=== PATIENT | female | born 1990 | race Hispanic/Latino ===

== ENCOUNTER 2017-03-02 12:38 | Emergency (ER) | payer BC, MEDICAID ==
[2017-03-02 13:02] VITALS: RESP 17; TEMP 98.2; O2SAT 100
[2017-03-02] MEDS ORDERED: Morphine 4 mg/ml ISec IM STA (13:12)
[2017-03-02] MEDS ORDERED: Lidocaine 5% Patch TD STA (13:12)
--- NOTE | 2017-03-02 13:16 | ED PDOC ---
Arrival/HPI - General Chief Complaint: Back Pain Time Seen by Provider: 03/02/17 13:07 Historian: Patient - History of Present Illness Narrative History of Present Illness (Text): 03/02/17 13:13 27 year old female, no pmh, allergic to nsaids, complaining of rt. lower back pain started today after squatting at the gym last night. Pt. woke up this morning with aching pain, spasm sensation, no urinary symptoms, limited relief with the tylenol plus allergic to the nsaid, aggravated by walking and movement , no numbness or tingling, no palpitation, no night sweat, no dizziness, no other medical or psychological complaints. Past Medical History - Provider Review Nursing Documentation Reviewed: Yes - Psychiatric Hx Psychophysiologic Disorder: No Hx Substance Use: No - Surgical History Hx Orthopedic Surgery: Yes Family/Social History - Physician Review Nursing Documentation Reviewed: Yes Family/Social History: Unknown Family HX Smoking Status: Never Smoked Hx Alcohol Use: Yes Frequency of alcohol use: Socially Hx Substance Use: No Allergies/Home Meds Allergies/Adverse Reactions: Allergies NSAIDS (Non-Steroidal Anti-Inflamma Allergy (Verified 03/02/17 12:58) ANAPHYLAXIS Home Medications: Home Meds Medication Instructions Recorded Confirmed Norethindrone-E.estradiol-Iron 1 tab PO DAILY 03/02/17 03/02/17 [Blisovi 24 Fe Tablet] Review of Systems - Review of Systems Constitutional: absent: Fatigue, Fevers Eyes: absent: Vision Changes ENT: absent: Hearing Changes Respiratory: absent: Cough, Sputum Cardiovascular: absent: Chest Pain Gastrointestinal: absent: Abdominal Pain, Nausea, Vomiting Musculoskeletal: Back Pain, Myalgias. absent: Arthralgias, Neck Pain, Joint Swelling Skin: absent: Rash, Pruritis, Skin Lesions Physical Exam Vital Signs Reviewed: Yes Vital Signs Temp Pulse Resp BP Pulse Ox 03/02/17 12:59 98.2 F 73 17 125/81 100 Temperature: Afebrile Blood Pressure: Normal Pulse: Regular Respiratory Rate: Normal Appearance: Positive for: Well-Appearing, Non-Toxic, Uncomfortable Pain Distress: Severe Mental Status: Positive for: Alert and Oriented X 3 - Systems Exam Head: Present: Atraumatic, Normocephalic Pupils: Present: PERRL Extroacular Muscles: Present: EOMI Conjunctiva: Present: Normal Mouth: Present: Moist Mucous Membranes Neck: Present: Normal Range of Motion Respiratory/Chest: Present: Clear to Auscultation, Good Air Exchange. No: Respiratory Distress, Accessory Muscle Use Cardiovascular: Present: Regular Rate and Rhythm, Normal S1, S2. No: Murmurs Abdomen: Present: Normal Bowel Sounds. No: Tenderness, Distention, Peritoneal Signs Back: Present: Normal Inspection, Other (LS spine: +ttp on the rt. paraspinal region with mild spasm, no cva tenderness, no rash, FROM without limitation but with pain upon lateral movement, sensation intact, motor 5/5, no saddling gait. ). No: CVA Tenderness, Midline Tenderness, Pain with Leg Raise, Decubitus Ulcer Upper Extremity: Present: Normal Inspection. No: Cyanosis, Edema Lower Extremity: Present: Normal Inspection. No: Edema Neurological: Present: GCS=15, CN II-XII Intact, Speech Normal Skin: Present: Warm, Dry, Normal Color. No: Rashes Psychiatric: Present: Alert, Oriented x 3, Normal Insight, Normal Concentration Medical Decision Making ED Course and Treatment: 03/02/17 13:17 -There is no emergent indication of the xray but the patient will need MRI of the lumbar spine if the pain persist over 7 days. -morphine/zofran/lidoderm/valium ordered. 03/02/17 13:44 -Pt. wants to go home and rest, has friend to drive her home. -Discharge home with lidoderm patch, flexeril, cane, heat compression, follow up with your own pmd within 2 days for MRI/CT of the lower back if the pain persist over 7 days, return to the ER for any new or worsening signs or symptoms. - Medication Orders Current Medication Orders: Discontinued Medications Diazepam (Valium) 5 mg PO ONCE ONE PRN Reason: Protocol Stop: 03/02/17 13:15 Lidocaine (Lidoderm) 1 ea TD STAT STA Stop: 03/02/17 13:13 Morphine Sulfate (Morphine) 4 mg IM STAT STA Stop: 03/02/17 13:13 - PA / MAGNETIC HEALER / Resident Statement / has reviewed & agrees with the documentation as recorded. Disposition/Present on Arrival - Present on Arrival Any Indicators Present on Arrival: No History of DVT/PE: No History of Uncontrolled Diabetes: No Urinary Catheter: No History of Decub. Ulcer: No History Surgical Site Infection Following: None - Disposition Have Diagnosis and Disposition been Completed?: Yes Diagnosis: Lower back pain, Back muscle spasm Disposition: HOME/ ROUTINE Disposition Time: 13:45 Patient Plan: Discharge Patient Problems: Current Active Problems Problem Status Onset Lower back pain Acute Back muscle spasm Acute Condition: GOOD Additional Instructions: Discharge home with lidoderm patch, flexeril, cane, heat compression, follow up with your own pmd within 2 days for MRI/CT of the lower back if the pain persist over 7 days, return to the ER for any new or worsening signs or symptoms. Prescriptions: Cyclobenzaprine [Cyclobenzaprine HCl] 10 mg PO TID PRN #21 tab PRN Reason: Other Lidocaine 5% [Lidoderm] 1 patch TP DAILY PRN #10 patch PRN Reason: Other Referrals: [facility] at [facility] [Outside] - Follow up with primary Forms: [employer] Connect (Austrian), WORK NOTE
[2017-03-02 14:08] VITALS: BP 122/79; PULSE 70
== END 2017-03-02 14:13 | disposition home or self-care (01) ==
LOC: ED 12:38
DX: M62.830 Muscle spasm of back (principal); M54.5 Low back pain
CPT/HCPCS: 96372; 99282; J2270

== ENCOUNTER 2017-07-25 18:53 | Emergency (ER) | payer BC, OTHER ==
[2017-07-25 19:03] VITALS: BP 137/82; PULSE 68; RESP 18; TEMP 98.4; O2SAT 99
[2017-07-25] MEDS ORDERED: TDAP Vaccine 0.5 mL Syr IM ONE (19:22)
[2017-07-25] MEDS ORDERED: Amoxicillin-Clav 875-125 mg Tab PO STA (19:23)
--- NOTE | 2017-07-25 19:32 | ED PDOC ---
Arrival/HPI - General Chief Complaint: Bite Time Seen by Provider: 07/25/17 18:58 Historian: Patient - History of Present Illness Narrative History of Present Illness (Text): 07/25/17 19:27 A 27 year old female with no significant past medical history, presents to the emergency department after being bitten by a dog at work. 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 The patient showed a picture of the wound. The patient denies denies fevers, chills, headache, dizziness, chest pain, shortness of breath, dyspnea on exertion, cough, abdominal pain, nausea, vomiting, diarrhea, back pain, neck pain, urinary/bowel changes, or any other complaint. Time/Duration: Prior to Arrival Symptom Onset: Sudden Symptom Course: Unchanged Activities at Onset: Rest, Light Context: Work Past Medical History - Provider Review Nursing Documentation Reviewed: Yes - Infectious Disease Hx of Infectious Diseases: None - Cardiac Hx Cardiac Disorders: No - Pulmonary Hx Emphysema: No - Neurological Hx Neurological Disorder: No - HEENT Hx HEENT Disorder: No - Renal Hx Renal Disorder: No - Endocrine/Metabolic Hx Endocrine Disorders: No - Hematological/Oncological Hx Blood Disorders: No - Integumentary Hx Dermatological Disorder: No - Musculoskeletal/Rheumatological Hx Musculoskeletal Disorders: No - Gastrointestinal Hx Gastrointestinal Disorders: No - Genitourinary/Gynecological Hx Genitourinary Disorders: No - Psychiatric Hx Psychophysiologic Disorder: No Hx Substance Use: No - Surgical History Hx Orthopedic Surgery: Yes Other/Comment: neto to the R leg. - Anesthesia Hx Anesthesia: Yes Hx Anesthesia Reactions: No Family/Social History - Physician Review Nursing Documentation Reviewed: Yes Family/Social History: No Known Family HX Smoking Status: Never Smoked Hx Alcohol Use: Yes Hx Substance Use: No Allergies/Home Meds Allergies/Adverse Reactions: Allergies aspirin Allergy (Verified 07/25/17 18:58) URTICARIA ibuprofen [From Motrin] Allergy (Verified 07/25/17 18:58) ANAPHYLAXIS NSAIDS (Non-Steroidal Anti-Inflamma Allergy (Verified 03/02/17 12:58) ANAPHYLAXIS Home Medications: Home Meds Medication Instructions Recorded Confirmed Norethindrone AC-Eth Estradiol 1 tab PO DAILY 07/25/17 07/25/17 [Elena 1.5 mg-30 Mcg Tablet] Phentermine HCl [Adipex-P] 1 tab PO DAILY 07/25/17 07/25/17 Review of Systems - Physician Review All systems were reviewed & negative as marked: Yes - Review of Systems Constitutional: absent: Fevers, Night Sweats Respiratory: absent: SOB, Cough Cardiovascular: absent: Chest Pain, ALEXIS Gastrointestinal: absent: Abdominal Pain, Stool Changes, Diarrhea, Nausea, Vomiting Genitourinary Female: absent: Urine Output Changes Musculoskeletal: Other (Dog bite to the right 4-5th toe.). absent: Back Pain, Neck Pain Neurological: absent: Headache, Dizziness Physical Exam Vital Signs Reviewed: Yes Vital Signs Temp Pulse Resp BP Pulse Ox 07/25/17 19:00 98.4 F 68 18 137/82 99 Temperature: Afebrile Blood Pressure: Normal Pulse: Regular Respiratory Rate: Normal Appearance: Positive for: Well-Appearing, Non-Toxic, Comfortable Pain Distress: None Mental Status: Positive for: Alert and Oriented X 3 - Systems Exam Head: Present: Atraumatic, Normocephalic Pupils: Present: PERRL Extroacular Muscles: Present: EOMI Conjunctiva: Present: Normal Mouth: Present: Moist Mucous Membranes Neck: Present: Normal Range of Motion Respiratory/Chest: Present: Clear to Auscultation, Good Air Exchange. No: Respiratory Distress, Accessory Muscle Use Cardiovascular: Present: Regular Rate and Rhythm, Normal S1, S2. No: Murmurs Abdomen: Present: Normal Bowel Sounds. No: Tenderness, Distention, Peritoneal Signs Back: Present: Normal Inspection Upper Extremity: Present: Normal Inspection. No: Cyanosis, Edema Lower Extremity: Present: Normal Inspection, Other (small abrasion to the right 4-5th toe.). No: Edema Neurological: Present: GCS=15, CN II-XII Intact, Speech Normal Skin: Present: Warm, Dry, Normal Color. No: Rashes Psychiatric: Present: Alert, Oriented x 3, Normal Insight, Normal Concentration Medical Decision Making ED Course and Treatment: 07/25/17 19:34 Impression: A 27 year old female presents to the emergency department for evaluation after a dog bit her on the right 4-5th toe. Plan: -- Boostrix Vaccine and Augmentin -- Reassess and disposition Progress Notes: 07/25/17 21:56 pt declines direct eval of toe, as pt was already banadaged, but shows picture of wound via cellphone. - Medication Orders Current Medication Orders: Discontinued Medications Amoxicillin/Clavulanate Potassium (Augmentin 875 Mg-125 Mg Tab) 1 tab PO STAT STA PRN Reason: Protocol Stop: 07/25/17 19:24 Last Admin: 07/25/17 19:37 Dose: 1 tab Tetanus/Reduced Diphtheria/Acell Pertussis (Boostrix Vaccine Inj) 0.5 ml IM .ONCE ONE Stop: 07/25/17 19:23 Last Admin: 07/25/17 19:36 Dose: 0.5 ml MAR Immunization Data Document 07/25/17 19:36 SE (Rec: 07/25/17 19:37 SE [id number]) Immunization Data Vaccine Lot Number [id number] Site Given Right Arm Route Intramuscular Immunization Units ml - Scribe Statement The provider has reviewed the documentation as recorded by the Scribe Isa Little Provider Scribe Attestation: All medical record entries made by the Scribe were at my direction and personally dictated by me. I have reviewed the chart and agree that the record accurately reflects my personal performance of the history, physical exam, medical decision making, and the department course for this patient. I have also personally directed, reviewed, and agree with the discharge instructions and disposition. Disposition/Present on Arrival - Present on Arrival Any Indicators Present on Arrival: No History of DVT/PE: No History of Uncontrolled Diabetes: No Urinary Catheter: No History of Decub. Ulcer: No History Surgical Site Infection Following: None - Disposition Have Diagnosis and Disposition been Completed?: Yes Diagnosis: Dog bite Disposition: HOME/ ROUTINE Disposition Time: 08:00 Condition: STABLE Discharge Instructions (ExitCare): Animal Bite (ED) Additional Instructions: return to er with worsening symptoms or concerns. please see your doctor/clinc Prescriptions: Amoxicillin/Clavulanate [Augmentin 875 MG-125 MG] 1 tab PO BID #14 tab Referrals: [facility] [Outside] - Follow up with primary [facility] at [facility] [Outside] - Follow up with primary Forms: MDconnectME (Tamazight)
== END 2017-07-25 19:51 | disposition home or self-care (01) ==
LOC: ED 18:53
DX: S91.154A Open bite of right lesser toe(s) without damage to nail, initial encounter (principal); W54.0XXA Bitten by dog, initial encounter; Y93.F9 Activity, other caregiving; Y92.238 Other place in hospital as the place of occurrence of the external cause; Y99.0 Civilian activity done for income or pay; Z23 Encounter for immunization

== ENCOUNTER 2018-11-01 09:35 | Emergency (ER) | payer SELFPAY ==
[2018-11-01 09:37] VITALS: BMI 25.1
[2018-11-01] MEDS ORDERED: Oxycodone/Acetaminophen 5/325 mg Tab PO STA ×2 (10:18→12:21)
--- NOTE | 2018-11-01 10:18 | ED PDOC ---
Arrival/HPI - General Chief Complaint: Back Pain Historian: Patient - History of Present Illness Narrative History of Present Illness (Text): 11/01/18 10:07 28 y/o female, no significant pmh, allergic to nsaids, c/o rt. scapula pain after heavy lifting x 1 day. 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 Past Medical History - Provider Review Nursing Documentation Reviewed: Yes - Infectious Disease Hx of Infectious Diseases: None - Cardiac Hx Cardiac Disorders: No - Pulmonary Hx Emphysema: No - Neurological Hx Neurological Disorder: No - HEENT Hx HEENT Disorder: No - Renal Hx Renal Disorder: No - Endocrine/Metabolic Hx Endocrine Disorders: No - Hematological/Oncological Hx Blood Disorders: No - Integumentary Hx Dermatological Disorder: No - Musculoskeletal/Rheumatological Hx Musculoskeletal Disorders: No - Gastrointestinal Hx Gastrointestinal Disorders: No - Genitourinary/Gynecological Hx Genitourinary Disorders: No - Psychiatric Hx Psychophysiologic Disorder: No Hx Substance Use: No - Surgical History Hx Orthopedic Surgery: Yes Hx Tonsillectomy: Yes Other/Comment: neto to the R leg. - Anesthesia Hx Anesthesia: Yes Hx Anesthesia Reactions: No Family/Social History - Physician Review Nursing Documentation Reviewed: Yes Family/Social History: Unknown Family HX Smoking Status: Never Smoked Hx Alcohol Use: Yes Hx Substance Use: No Allergies/Home Meds Allergies/Adverse Reactions: Allergies aspirin Allergy (Verified 07/25/17 18:58) URTICARIA ibuprofen [From Motrin] Allergy (Verified 07/25/17 18:58) ANAPHYLAXIS NSAIDS (Non-Steroidal Anti-Inflamma Allergy (Verified 03/02/17 12:58) ANAPHYLAXIS Home Medications: Home Meds Medication Instructions Recorded Confirmed Norethindrone AC-Eth Estradiol 1 tab PO DAILY 07/25/17 07/25/17 [Elena 1.5 mg-30 Mcg Tablet] Phentermine HCl [Adipex-P] 1 tab PO DAILY 07/25/17 07/25/17 Review of Systems - Review of Systems Constitutional: absent: Fatigue, Fevers Eyes: absent: Vision Changes ENT: absent: Hearing Changes Respiratory: absent: SOB, Cough Cardiovascular: absent: Chest Pain Gastrointestinal: absent: Abdominal Pain, Diarrhea, Nausea, Vomiting Musculoskeletal: Myalgias. absent: Arthralgias Skin: absent: Rash, Pruritis Neurological: absent: Headache Psychiatric: absent: Anxiety, Depression, Suicidal Ideation Physical Exam Pain Distress: Moderate Mental Status: Positive for: Alert and Oriented X 3 - Systems Exam Head: Present: Atraumatic, Normocephalic Pupils: Present: PERRL Extroacular Muscles: Present: EOMI Conjunctiva: Present: Normal Mouth: Present: Moist Mucous Membranes Neck: Present: Normal Range of Motion, Trachea Midline. No: Meningeal Signs, MIDLINE TENDERNESS, Paraspinal Tenderness, Lymphadenopathy Respiratory/Chest: Present: Clear to Auscultation, Good Air Exchange. No: Respiratory Distress, Accessory Muscle Use Cardiovascular: Present: Regular Rate and Rhythm, Normal S1, S2. No: Murmurs Abdomen: No: Tenderness, Distention, Peritoneal Signs Back: Present: Normal Inspection Upper Extremity: Present: Normal Inspection, Normal ROM, NORMAL PULSES, Neurovascularly Intact, Capillary Refill < 2s, Other (Rt. shoulder: +ttp on the rt. trapezius near the scapular region, no deformity, FROM without limitation, sensation intact, motor 5/5, +radial pulse, capillary refill< 2 seconds, neurovascular intact. ). No: Cyanosis, Edema, Deformity Lower Extremity: Present: Normal Inspection, NORMAL PULSES, Neurovascularly Intact. No: Edema, Tenderness, Swelling Neurological: Present: GCS=15, CN II-XII Intact, Speech Normal, Motor Func Grossly Intact, Gait Normal, Memory Normal Skin: Present: Warm, Dry, Normal Color. No: Rashes Psychiatric: Present: Alert, Oriented x 3, Normal Insight, Normal Concentration Medical Decision Making ED Course and Treatment: 11/01/18 10:21 -Urine hcg -xray -percocet -Observe and reassess 11/01/18 12:22 -Urine hcg: negative -Rt. scapular xray: Negative study -Pt. feels improved, would like more pain med as she is not driving which she is calling her friend to pick her up, another percocet ordered with sling. -Discharge home with flexeril, lidoderm patch, tylenol as needed, sling, ice compression, bed rest, follow up with your own pmd and physical therpist/orthopedic within 2 days, return to the ER for any new or worsening signs or symptoms. - RAD Interpretation Radiology Orders: Date of service: 11/01/2018 PROCEDURE: Right scapular radiographs HISTORY: rt. scapular pain COMPARISON: None TECHNIQUE: Standard protocol for this study/examination. FINDINGS: No significant osseous, articular or soft tissue abnormalities. Preserved glenohumeral relationship. Negative study for clavicular, scapular, humeral fracture. No abnormalities visualized thorax including limited assessment of ribs and pulmonary parenchyma Degenerative changes-none. IMPRESSION: Negative study Program Coordinator For [employer]: Radiologist - PA / BLOW DOWN OPERATOR / Resident Statement MD/DO has reviewed & agrees with the documentation as recorded. Disposition/Present on Arrival - Present on Arrival Any Indicators Present on Arrival: No History of DVT/PE: No History of Uncontrolled Diabetes: No Urinary Catheter: No History of Decub. Ulcer: No History Surgical Site Infection Following: None - Disposition Have Diagnosis and Disposition been Completed?: Yes Diagnosis: Pain in scapula Disposition: HOME/ ROUTINE Disposition Time: 12:24 Patient Plan: Discharge Condition: IMPROVED Additional Instructions: -Discharge home with flexeril, lidoderm patch, tylenol as needed, sling, ice compression, bed rest, follow up with your own pmd and physical therpist/orthopedic within 2 days, return to the ER for any new or worsening signs or symptoms. Prescriptions: Cyclobenzaprine [Flexeril] 10 mg PO TID PRN #21 tab PRN Reason: Other Lidocaine 5% [Lidoderm] 1 patch TOP DAILY PRN #14 patch PRN Reason: Other Referrals: Venkat Centeno MD [Staff Provider] - Follow up with primary [facility] [place] - Follow up with primary Forms: [employer] Connect (Estonian), WORK NOTE
[2018-11-01 10:19] VITALS: RESP 18; TEMP 98.5
--- NOTE | 2018-11-01 11:54 | RAD ---
Date of service: 11/01/2018 PROCEDURE: Right scapular radiographs HISTORY: rt. scapular pain COMPARISON: None TECHNIQUE: Standard protocol for this study/examination. FINDINGS: No significant osseous, articular or soft tissue abnormalities. Preserved glenohumeral relationship. Negative study for clavicular, scapular, humeral fracture. No abnormalities visualized thorax including limited assessment of ribs and pulmonary parenchyma Degenerative changes-none. IMPRESSION: Negative study
[2018-11-01 12:35] VITALS: BP 118/76; PULSE 68; O2SAT 98
== END 2018-11-01 12:37 | disposition home or self-care (01) ==
LOC: ED 09:35
DX: M25.511 Pain in right shoulder (principal)